=== PATIENT | female | born 1985 | race Caucasian/White ===

== ENCOUNTER 2016-11-30 21:51 | Outpatient (CLI) | payer MEDICAID | END 2016-11-30 21:52 | disposition home or self-care (01) | DX: M79.641 Pain in right hand (principal) ==

== ENCOUNTER 2017-06-10 08:27 | Emergency (ER) | payer MEDICAID ==
[2017-06-10] MEDS ORDERED: IPRATROPIUM/ALBUTEROL 3 ML NEB INH STA (08:43)
[2017-06-10] MEDS ORDERED: IPRATROPIUM/ALBUTEROL 3 ML NEB INH ONE (08:48)
--- NOTE | 2017-06-10 08:53 | ED Physician Documentation ---
PD HPI DYSPNEA - Stated complaint Stated Complaint: SOA - Chief complaint Chief Complaint: Resp - History obtained from History obtained from: Patient - History of Present Illness Timing - onset: How many weeks ago (1) Timing - onset during: Rest Timing - duration: Weeks (1) Timing - details: Gradual onset, Still present Inciting event(s): URI Improved by: Inhaler/neb Worsened by: Exertion, Coughing Associated symptoms: Cough, Wheezing. No: Fever Similar symptoms before: Diagnosis (asthma exacerbation) Recently seen: Not recently seen - Additional information Additional information: 31-year-old female with a history of chronic persistent asthma has developed increased wheezing over the past week and she is now very tight. She uses her inhaler 2-3 times per day regularly and she has been using it more frequently. She has a cough productive of phlegm she has some sinus congestion and she has had some ear pain. She has not had vomiting. She has not been able to gain control over her asthma and has some issue with inhaled corticosteroid. She does not have issue with prednisone. Review of Systems Constitutional: denies: Fever Eyes: denies: Decreased vision Ears: reports: Ear pain Nose: reports: Rhinorrhea / runny nose, Congestion, Sinus pressure / pain Throat: denies: Sore throat Cardiac: denies: Chest pain / pressure, Palpitations Respiratory: reports: Dyspnea, Cough, Wheezing GI: denies: Abdominal Pain, Nausea, Vomiting : denies: Dysuria PD PAST MEDICAL HISTORY - Past Medical History Cardiovascular: None Respiratory: Asthma Neuro: Headache/migraine Endocrine/Autoimmune: None GI: None : None HEENT: None Psych: None Musculoskeletal: None Derm: Eczema - Past Surgical History Past Surgical History: No HEENT: Myringotomy (tubes) - Present Medications Home Medications: Ambulatory Orders Medication Instructions Recorded Confirmed Ibuprofen [Motrin] 800 mg PO Q8H PRN 10/21/13 10/21/13 Albuterol Sulfate [Ventolin Hfa] 90 12/04/13 12/04/13 Azithromycin [Zithromax] 250 mg PO DAILY #6 tablet 06/10/17 predniSONE [Deltasone] 10 mg PO DAILY #26 tablet 06/10/17 - Allergies Allergies/Adverse Reactions: Allergies Allergy/AdvReac Type Severity Reaction Status Date / Time Latex, Natural Rubber Allergy Severe Hives Verified 08/22/13 23:45 Sulfa (Sulfonamide Allergy Severe Rash Verified 08/22/13 23:45 Antibiotics) - Social History Does the pt smoke?: Yes Smoking Status: Current every day smoker Does the pt drink ETOH?: Yes Does the pt have substance abuse?: No - Immunizations Immunizations are current?: Yes PD ED PE NORMAL - Vitals Vital signs reviewed: Yes (Normal) - General General: Well developed/nourished, Other (The patient is using pursed lipped breathing) - HEENT HEENT: Atraumatic, PERRL, EOMI, Ears normal, Moist mucous membranes, Pharynx benign - Neck Neck: Supple, no meningeal sign, No bony TTP - Cardiac Cardiac: RRR, No murmur - Respiratory Respiratory: Other (Tachypneic at rest with fine wheezes throughout and diminished breath sounds.) - Abdomen Abdomen: Soft, Non tender - Back Back: No CVA TTP, No spinal TTP - Derm Derm: Normal color, Warm and dry, No rash - Extremities Extremities: No deformity, No edema - Neuro Neuro: No motor deficit, No sensory deficit - Psych Psych: Normal mood, Normal affect Results - Vitals Vitals: Vital Signs - 24 hr 06/10/17 06/10/17 08:37 08:47 Temperature 97.9 C H Heart Rate 93 81 Respiratory 24 22 Rate Blood Pressure 103/66 O2 Saturation 99 Oxygen O2 Source Room air PD MEDICAL DECISION MAKING - ED course Complexity details: considered differential, d/w patient ED course: 31-year-old female with a history of chronic persistent asthma has an exacerbation of asthma with cough productive of green phlegm. Her ears appear clear today. Here in the emergency department she is given a DuoNeb treatment we will place her on a course of prednisone and Zithromax and she will follow- up with her primary. Departure - Departure Disposition: 01 Home, Self Care Clinical Impression: Asthma exacerbation Acute bronchitis Qualifiers: Bronchitis organism: unspecified organism Qualified Code(s): J20.9 - Acute bronchitis, unspecified Condition: Stable Instructions: ED Upper Resp Infec Abx Tx, ED Reactive Airway Disease Follow-Up: Mesfin Bennett MD [Primary Care Provider] - Prescriptions: predniSONE [Deltasone] 10 mg PO DAILY #26 tablet Azithromycin [Zithromax] 250 mg PO DAILY #6 tablet Forms: Activity restrictions
[2017-06-10 09:13] VITALS: BP 103/78
== END 2017-06-10 09:26 | disposition home or self-care (01) ==
LOC: ED 08:27
DX: J45.901 Unspecified asthma with (acute) exacerbation (principal); J20.9 Acute bronchitis, unspecified; F17.200 Nicotine dependence, unspecified, uncomplicated
CPT/HCPCS: 94640; 94664; 99283; J7620

== ENCOUNTER 2017-09-01 14:00 | Outpatient (CLI) | payer OTHER, MEDICAID ==
--- NOTE | 2017-09-08 17:10 | XRAY Report ---
EXAM: COMPLETE LUMBAR SPINE 09/01/2017. CLINICAL INDICATION: Lower back pain for months. FINDINGS: AP, lateral, oblique, cone down views of the lumbar spine demonstrate normal height and alignment of the vertebral bodies. There is a bilateral L5 pars defect, without evidence of anterolisthesis of L5 on S1. Bulky facet arthropathy is noted at L4-L5. There is no evidence of compression fracture. Bilateral tubal ligation clips are incidentally noted. IMPRESSION: Bilateral L5 pars defects, without evidence of anterolisthesis of L5 on S1. Bulky facet arthropathy at L4-L5. No evidence of compression fracture. TD: 09/01/2017 17:51 [facility]
== END 2017-09-01 14:01 | disposition home or self-care (01) ==
LOC: DI 14:00
PROVIDERS: ATTEND Nurse Practitioner Gerontology
DX: M43.06 Spondylolysis, lumbar region (principal); M47.896 Other spondylosis, lumbar region
CPT/HCPCS: 72110

== ENCOUNTER 2017-10-13 15:18 | Outpatient (CLI) | payer OTHER, MEDICAID ==
--- NOTE | 2017-10-13 17:54 | XRAY Report ---
DATE OF SERVICE: 10/13/2017 THREE VIEW SACRUM AND COCCYX: 10/13/2017 CLINICAL INDICATION: Coccygeal pain. FINDINGS: AP, lateral, oblique views of the sacrum and coccyx demonstrate no evidence of fracture. The sacral ala are preserved. The sacroiliac joints are unremarkable. Tubal ligation clips are incidentally noted in the pelvis. IMPRESSION: NORMAL SACRUM AND COCCYX. TD: 10/13/2017 18:53
== END 2017-10-13 15:19 | disposition home or self-care (01) ==
LOC: DI 15:18
PROVIDERS: ATTEND Family Medicine
DX: M53.3 Sacrococcygeal disorders, not elsewhere classified (principal)
CPT/HCPCS: 72220

== ENCOUNTER 2018-02-26 14:47 | Outpatient (CLI) | payer MEDICAID, OTHER ==
--- NOTE | 2018-02-26 16:58 | MRI Report ---
EXAM: MRI PELVIS WITHOUT CONTRAST EXAM DATE: 02/26/2018 03:51 PM. CLINICAL HISTORY: Sacral back pain, coccygeal pain. COMPARISON: Sacrococcygeal radiography from 10/13/2017. TECHNIQUE: Multiplanar, multisequence T1-weighted and fluid-sensitive sequences of the pelvis without contrast. Other: None. FINDINGS: Bones: There are small hemangiomas or focal fatty marrow deposits within the L5 vertebral body and S2 segment of the sacrum. No acute fracture. Lower Lumbar Spine: Unremarkable. Sacroiliac Joints: No effusion or sacroiliitis. Right Hip: No acetabular retroversion. Femoral head-neck offset is within normal limits. No effusion. Left Hip: No acetabular retroversion. Femoral head-neck offset is within normal limits. No effusion. Musculature: No edema or fatty atrophy. Pelvic Cavity: There is a 1.6 x 1.6 x 1.5 cm cyst at the left ovary. No free fluid or lymphadenopathy . Other: The visualized sciatic nerves are unremarkable. The subcutaneous tissues are unremarkable. IMPRESSION: 1. Small subcentimeter hemangiomas or focal fatty marrow deposits within the L5 vertebral body and S1 segment of the sacrum. 2. No acute fracture or bone lesion. 3. Incidental finding of a small left ovarian cyst. 4. Otherwise, unremarkable MRI of the sacrum and coccyx. [facility] MUSCULOSKELET[facility]IOLOGY SECTION Referring Provider Line: [phone] SITE ID: [id number]
== END 2018-02-26 14:48 | disposition home or self-care (01) ==
LOC: DI 14:47
PROVIDERS: ATTEND Family Medicine
DX: M54.89 Other dorsalgia (principal); M53.3 Sacrococcygeal disorders, not elsewhere classified
CPT/HCPCS: 72195

== ENCOUNTER 2018-11-28 08:47 | Emergency (ER) | payer BC, OTHER ==
--- NOTE | 2018-11-28 09:06 | ED Physician Documentation ---
PD HPI CHEST PAIN - Stated complaint Stated Complaint: CP/SOA - History obtained from History obtained from: Patient - History of Present Illness Timing - onset: How many hours ago (1) Timing - onset during: Rest Timing - duration: Hours (1) Timing - details: Abrupt onset Pain level max: 9 Pain level now: 9 Quality: Pressure, Tightness Location: Other (Entire chest) Radiation: Other (Nonradiating) Improved by: Other (Improved when she used her inhaler) Worsened by: Movement, Palpation Associated symptoms: Shortness of air. No: Diaphoresis, Nausea, Vomiting, Fee ling faint / dizzy, General Weakness, Palpitations, Cough Recently seen: Not recently seen Review of Systems Constitutional: denies: Fever, Chills Cardiac: denies: Palpitations Respiratory: reports: Wheezing (Had wheezing at the time of the symptoms, this is now better). denies: Cough GI: denies: Vomiting, Diarrhea Skin: denies: Rash Musculoskeletal: denies: Neck pain, Back pain PD PAST MEDICAL HISTORY - Past Medical History Cardiovascular: None Respiratory: Asthma Endocrine/Autoimmune: None GI: None : None HEENT: None Psych: None Musculoskeletal: None Derm: Eczema - Past Surgical History Past Surgical History: No HEENT: Myringotomy (tubes) - Present Medications Home Medications: Ambulatory Orders Medication Instructions Recorded Confirmed Albuterol Sulfate [Ventolin Hfa] 90 applic NEB PRN PRN 12/04/13 11/28/18 - Allergies Allergies/Adverse Reactions: Allergies Allergy/AdvReac Type Severity Reaction Status Date / Time Latex, Natural Rubber Allergy Severe Hives Verified 08/22/13 23:45 Sulfa (Sulfonamide Allergy Severe Rash Verified 08/22/13 23:45 Antibiotics) - Social History Does the pt smoke?: Yes Smoking Status: Current every day smoker Does the pt drink ETOH?: Yes Does the pt have substance abuse?: No - Immunizations Immunizations are current?: Yes PD ED PE NORMAL - Vitals Vital signs reviewed: Yes - General General: Alert and oriented X 3, No acute distress, Well developed/nourished - HEENT HEENT: PERRL, Ears normal, Moist mucous membranes - Neck Neck: Supple, no meningeal sign - Cardiac Cardiac: RRR - Respiratory Respiratory: No respiratory distress, Other (Mild wheezing bilaterally) - Abdomen Abdomen: Soft, Non tender, Non distended - Derm Derm: Warm and dry, No rash - Extremities Extremities: No edema, No calf tenderness / cord - Neuro Neuro: Alert and oriented X 3 - Psych Psych: Normal mood, Normal affect Results - Vitals Vitals: Vital Signs - 24 hr 11/28/18 11/28/18 11/28/18 09:13 09:15 09:45 Temperature 36.4 C L Heart Rate 56 L 56 L Respiratory 16 11 L Rate Blood Pressure 108/79 121/82 H 119/76 O2 Saturation 100 100 11/28/18 11/28/18 10:15 10:44 Temperature Heart Rate 57 L 61 Respiratory 22 22 Rate Blood Pressure 110/72 O2 Saturation 100 100 Oxygen O2 Source Room air - EKG (time done) 0856 Rate: Rate (enter#) (56) Rhythm: NSR [place]: Normal Intervals: Normal ND QRS: Normal Ischemia: Normal ST segments - Labs Labs: Laboratory Tests 11/28/18 11/28/18 11/28/18 09:13 09:13 09:13 WBC 6.7 RBC 4.64 Hgb 13.0 Hct 38.5 MCV 83.0 MCH 28.1 MCHC 33.9 RDW 13.0 Plt Count 183 MPV 8.9 Neut # (Auto) 3.3 Lymph # (Auto) 2.4 George # (Auto) 0.6 Eos # (Auto) 0.2 Baso # (Auto) 0.0 Absolute Nucleated RBC 0.00 Nucleated RBC % 0.0 Sodium 137 Potassium 3.6 Chloride 104 Carbon Dioxide 23 Anion Gap 10.0 BUN 13 Creatinine 0.8 Estimated GFR (MDRD) 82 L Glucose 96 Calcium 9.2 Total Bilirubin 0.9 AST 17 ALT < 10 L Alkaline Phosphatase 41 L Troponin I < 0.04 Total Protein 7.0 Albumin 4.4 Globulin 2.6 Albumin/Globulin Ratio 1.7 Lipase 25 - Rads (name of study) cxr Radiology: Prelim report reviewed, EMP read contemporaneously, See rad report (no acute disease) PD MEDICAL DECISION MAKING - ED course Complexity details: reviewed results, re-evaluated patient, considered d ifferential, d/w patient ED course: 33-year-old female with what sounds like bronchospasm today. Symptoms improved with an inhaler and wheezing resolved. She was also given a nebulizer treatment in the emergency department with good relief. No evidence of acute coronary syndrome, pulmonary embolus, aortic dissection. Patient counseled regarding signs and symptoms for which I believe and urgent re-evaluation would be necessary. Patient with good understanding of and agreement to plan and is comfortable going home at this time This document was made in part using voice recognition software. While efforts are made to proofread this document, sound alike and grammatical errors may occur. Departure - Departure Disposition: Home, Self Care Clinical Impression: Chest pain Qualifiers: Chest pain type: unspecified Qualified Code(s): R07.9 - Chest pain, unspecified Condition: Good Instructions: ED Chest Pain Atypical Unkn Cause Follow-Up: Your,doctor within 1 week [Other] Comments: Return if you worsen. Use your inhaler as needed. It appears that you had an episode of bronchospasm today. Forms: Activity restrictions Discharge Date/Time: 11/28/18 10:50
[2018-11-28 09:16] LABS: BASOPHILS % (AUTO) 0.6 %; EOSINOPHILS # (AUTO) 0.2 10^3/uL (0.0-0.7); LYMPHOCYTES # (AUTO) 2.4 10^3/uL (1.5-3.5); LYMPHOCYTES % (AUTO) 36.7 %; MEAN CORPUSCULAR HEMOGLOBIN 28.1 pg (27.0-31.0); MEAN CORPUSCULAR HGB CONC 33.9 g/dL (32.0-36.0); MEAN PLATELET VOLUME 8.9 fL (7.9-10.8); MONOCYTES # (AUTO) 0.6 10^3/uL (0.0-1.0); MONOCYTES % (AUTO) 9.5 %; NEUTROPHILS # (AUTO) 3.3 10^3/uL (1.5-6.6); NEUTROPHILS % (AUTO) 50.2 %; PLT - PLATELET COUNT 183 10^3/uL (130-450); RED BLOOD COUNT 4.64 10^6/uL (4.20-5.40); WHITE BLOOD COUNT 6.7 x10^3/uL (4.8-10.8)
[2018-11-28 09:30] LABS: ALBUMIN 4.4 g/dL (3.2-5.5); ALBUMIN/GLOBULIN RATIO 1.7 (1.0-2.2); ALKALINE PHOSPHATASE 41 IU/L (42-121); ALT ALANINE AMINOTRANSFERASE < 10 IU/L (10-60); AST ASPARTATE AMINOTRANSFERASE 17 IU/L (10-42); BILIRUBIN,TOTAL 0.9 mg/dL (0.2-1.0); BUN - BLOOD UREA NITROGEN 13 mg/dL (6-20); CALCIUM 9.2 mg/dL (8.5-10.3); CARBON DIOXIDE - CO2 23 mmol/L (21-32); CHLORIDE 104 mmol/L (101-111); CREATININE 0.8 mg/dL (0.4-1.0); GFR - MDRD 82 (>89); GLUCOSE 96 mg/dL (70-100); LIPASE 25 U/L (22-51); SODIUM 137 mmol/L (135-145)
--- NOTE | 2018-11-28 09:31 | XRAY Report ---
Reason: Chest Pain Procedure Date: 11/28/2018 Accession Number: [id number] / [id number] Procedure: XR - Chest 1 View X-Ray CPT Code: 13026 FULL RESULT: EXAM: CHEST RADIOGRAPHY EXAM DATE: 11/28/2018 09:17 AM. CLINICAL HISTORY: Chest pain. COMPARISON: CHEST 2 VIEW PA/LAT 10/20/2013 10:06 PM. TECHNIQUE: 1 view. FINDINGS: Lungs/Pleura: No focal opacities evident. No pleural effusion. No pneumothorax. Mediastinum: Within exam limitations, the cardiomediastinal contour is normal. Other: None. IMPRESSION: Normal single view chest. [facility]
[2018-11-28] MEDS ORDERED: ALBUTEROL NEB 2.5 MG/3 ML INH STA (09:52)
[2018-11-28 10:44] VITALS: BP 110/72
== END 2018-11-28 10:50 | disposition home or self-care (01) ==
LOC: ED 08:47
DX: R07.9 Chest pain, unspecified (principal); R94.31 Abnormal electrocardiogram [ECG] [EKG]; F17.200 Nicotine dependence, unspecified, uncomplicated; Z96.22 Myringotomy tube(s) status
CPT/HCPCS: 36415; 71045; 80053; 83690; 84484; 85025; 93005; 94640; 99283; 99284

== ENCOUNTER 2019-05-14 18:18 | Emergency (ER) | payer OTHER, BC ==
[2019-05-14] MEDS ORDERED: ONDANSETRON ODT 4 MG TABLET TL STA (18:54)
--- NOTE | 2019-05-14 19:52 | CT Report ---
Reason: head injury, ALOC Procedure Date: 05/14/2019 Accession Number: [id number] / [id number] Procedure: CT - HEAD WO CPT Code: FULL RESULT: EXAM: CT HEAD EXAM DATE: 05/14/2019 07:25 PM. CLINICAL HISTORY: Head injury, ALOC. COMPARISON: None. TECHNIQUE: Multiaxial CT images were obtained from the foramen magnum to the vertex. Reformats: Sagittal and coronal. IV contrast: None. In accordance with CT protocol optimization, one or more of the following dose reduction techniques were utilized for this exam: automated exposure control, adjustment of mA and/or KV based on patient size, or use of iterative reconstructive technique. FINDINGS: Parenchyma: No intraparenchymal hemorrhage. No evidence of mass, midline shift, or CT findings of infarction. Boudreaux-white differentiation is distinct. Extraaxial Spaces: Normal for age. No subdural or epidural collections. Ventricles: Normal in size and position. Sinuses and Orbits: Imaged paranasal sinuses, orbits, and mastoids show no significant abnormality. Bones: Unremarkable. Other: None. IMPRESSION: Normal head CT. [facility]
--- NOTE | 2019-05-14 20:13 | ED Physician Documentation ---
PD HPI HEAD INJURY - Stated complaint Stated Complaint: HEAD PX - Chief complaint Chief Complaint: Neuro - History obtained from History obtained from: Patient - History of Present Illness Mechanism of head injury: Other (stood up and hit head on pipe at work today.) Where head injury occurred: Work Timing - onset: How many hours ago (1) Pain level max: 6 Pain level now: 5 Location of injury: Top Quality of pain: Pain, Throbbing, Aching Associated symptoms: AMS (states feels dazed). No: LOC Symptoms improve with: Rest Symptoms worsen with: Palpation Contributing factors: No: Anticoagulated, Intoxicated Recently seen: Not recently seen Review of Systems Constitutional: denies: Fever, Chills Throat: denies: Sore throat Cardiac: denies: Chest pain / pressure Respiratory: denies: Cough, Hemoptysis Skin: denies: Rash Musculoskeletal: denies: Neck pain, Back pain Neurologic: denies: Focal weakness, Numbness PD PAST MEDICAL HISTORY - Past Medical History Cardiovascular: None Respiratory: Asthma Endocrine/Autoimmune: None GI: None : None HEENT: None Psych: None Musculoskeletal: None Derm: Eczema - Past Surgical History Past Surgical History: No HEENT: Myringotomy (tubes) - Present Medications Home Medications: Ambulatory Orders Medication Instructions Recorded Confirmed Albuterol Sulfate [Ventolin Hfa] 90 applic NEB PRN PRN 12/04/13 11/28/18 Ondansetron Odt [Zofran] 4 mg TL Q6H PRN #10 tablet 05/14/19 - Allergies Allergies/Adverse Reactions: Allergies Allergy/AdvReac Type Severity Reaction Status Date / Time Latex, Natural Rubber Allergy Severe Hives Verified 05/14/19 18:28 Sulfa (Sulfonamide Allergy Severe Rash Verified 05/14/19 18:28 Antibiotics) - Social History Does the pt smoke?: Yes Smoking Status: Current every day smoker Does the pt drink ETOH?: Yes Does the pt have substance abuse?: No - Immunizations Immunizations are current?: Yes PD ED PE NORMAL - Vitals Vital signs reviewed: Yes - General General: Alert and oriented X 3, No acute distress - HEENT HEENT: PERRL, EOMI, Moist mucous membranes, Pharynx benign, Other (Tender to palpation on the crown of the head, parietal aspect. 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, No motor deficit, No sensory deficit, Normal speech Eye Opening: Spontaneous Motor: Obeys Commands Verbal: Oriented GCS Score: 15 - Psych Psych: Normal mood, Normal affect Results - Vitals Vitals: Vital Signs - 24 hr 05/14/19 05/14/19 18:26 20:17 Temperature 36.0 C L 36.6 C Heart Rate 72 61 Respiratory 19 16 Rate Blood Pressure 144/86 H 104/70 O2 Saturation 100 99 Oxygen O2 Source Room air PD MEDICAL DECISION MAKING - ED course Complexity details: reviewed results, re-evaluated patient, considered differential, d/w patient ED course: 33-year-old female presents to the emergency department after striking her head on a metal pipe tonight. Negative head CT. No neurological deficits. Patient counseled regarding signs and symptoms for which I believe and urgent re- evaluation would be necessary. Patient with good understanding of and agreement to plan and is comfortable going home at this time This document was made in part using voice recognition software. While efforts are made to proofread this document, sound alike and grammatical errors may occur. Departure - Departure Disposition: 01 Home, Self Care Clinical Impression: Head injury Qualifiers: Encounter type: initial encounter Qualified Code(s): S09.90XA - Unspecified injury of head, initial encounter Condition: Good Instructions: ED Head Injury Closed Follow-Up: your,doctor in 1 week [Other] Prescriptions: Ondansetron Odt [Zofran] 4 mg TL Q6H PRN #10 tablet PRN Reason: Nausea / Vomiting Comments: Return if you worsen. Your head CT is normal. You may have headaches for a few days. Discharge Date/Time: 05/14/19 20:18
[2019-05-14 20:17] VITALS: BP 104/70
== END 2019-05-14 20:18 | disposition home or self-care (01) ==
LOC: ED 18:18
DX: S09.90XA Unspecified injury of head, initial encounter (principal); W51.XXXA Accidental striking against or bumped into by another person, initial encounter; Y93.89 Activity, other specified; Y99.0 Civilian activity done for income or pay; F17.200 Nicotine dependence, unspecified, uncomplicated
CPT/HCPCS: 1040M; 70450; 99283; 99284; Q0162

== ENCOUNTER 2019-06-23 14:29 | Emergency (ER) | payer BC ==
[2019-06-23] MEDS ORDERED: IPRATROPIUM/ALBUTEROL 3 ML NEB INH STA (14:34)
--- NOTE | 2019-06-23 15:11 | ED Physician Documentation ---
PD HPI DYSPNEA - Stated complaint Stated Complaint: SOA/COUGH - Chief complaint Chief Complaint: Resp - History obtained from History obtained from: Patient - History of Present Illness Timing - duration: Days Timing - details: Gradual onset Pain level now: 0 Worsened by: Exertion, Coughing Associated symptoms: Cough, Wheezing. 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 Today she was using her Ventolin inhaler about every 30 minutes and it was not clearing the shortness of breath so she went to get her nebulizer and the tube was broken. She was feeling lightheaded and coughing a lot so she thought she should come in to be evaluated. She has a history of asthma most recent use of prednisone was about a year ago. She is been using Advil Cold and Sinus and Delsym for the coughing. She says that she brings up very minimal phlegm that is clear she is also had some frontal sinus pressure but only coronal blowing clear mucus out occasionally slightly green. She denies chest pain other than when she coughed very hard she had some pain in the right anterior chest. No fever. Review of Systems Constitutional: denies: Fever Ears: reports: Ear pain Nose: reports: Congestion, Sinus pressure / pain Throat: denies: Sore throat Cardiac: denies: Chest pain / pressure, Palpitations Respiratory: reports: Dyspnea, Cough, Wheezing PD PAST MEDICAL HISTORY - Past Medical History Cardiovascular: None Respiratory: Asthma Endocrine/Autoimmune: None GI: None : None HEENT: None Psych: None Musculoskeletal: None Derm: Eczema - Past Surgical History Past Surgical History: No HEENT: Myringotomy (tubes) - Present Medications Home Medications: Ambulatory Orders Medication Instructions Recorded Confirmed Albuterol Sulfate [Ventolin Hfa] 90 applic NEB PRN PRN 12/04/13 11/28/18 Albuterol 2.5 mg INH Q4H PRN #30 neb 06/23/19 Benzonatate [Tessalon] 100 mg PO TID #30 capsule 06/23/19 predniSONE [Deltasone] 40 mg PO DAILY 5 Days #10 tablet 06/23/19 - Allergies Allergies/Adverse Reactions: Allergies Allergy/AdvReac Type Severity Reaction Status Date / Time Latex, Natural Rubber Allergy Severe Hives Verified 06/23/19 14:41 Sulfa (Sulfonamide Allergy Severe Rash Verified 06/23/19 14:41 Antibiotics) - Social History Does the pt smoke?: Yes Smoking Status: Former smoker Does the pt drink ETOH?: Yes Does the pt have substance abuse?: No - Immunizations Immunizations are current?: Yes PD ED PE NORMAL - Vitals Vital signs reviewed: Yes - General General: Alert and oriented X 3, No acute distress, Well developed/nourished - HEENT HEENT: Atraumatic, PERRL, EOMI, Moist mucous membranes, Pharynx benign, Other (TMs are mildly retracted bilaterally) - Neck Neck: Supple, no meningeal sign - Cardiac Cardiac: RRR - Respiratory Respiratory: No respiratory distress, Other (There was an isolated end inspiratory wheeze at the left base that cleared with deep breathing. The patient had already received albuterol nebulizer prior to my evaluation.) - Derm Derm: Normal color, No rash - Neuro Neuro: Alert and oriented X 3, Normal speech, Other (No gross neurological deficits.) Results - Vitals Vitals: Vital Signs - 24 hr 06/23/19 06/23/19 14:39 14:57 Temperature 36.7 C Heart Rate 83 70 Respiratory 24 18 Rate Blood Pressure 119/86 H O2 Saturation 100 Oxygen O2 Source Room air PD MEDICAL DECISION MAKING - ED course ED course: Patient is feeling better after 1 albuterol nebulizer and has no wheezing. She feels she would benefit from a 5-day course of prednisone and I have refilled her albuterol nebulizer solution and provide a prescription for Tessalon Perles. Do not see an indication for chest x-ray or antibiotics. She will follow-up if not improving. Departure - Departure Disposition: 01 Home, Self Care Clinical Impression: Asthma exacerbation Qualifiers: Asthma severity: mild Asthma persistence: unspecified Qualified Code(s): J45.901 - Unspecified asthma with (acute) exacerbation Upper respiratory tract infection Qualifiers: URI type: unspecified viral URI Qualified Code(s): J06.9 - Acute upper respiratory infection, unspecified Condition: Good Instructions: Asthma Dc, ED Viral Syndrome Follow-Up: Alejandro Myrick PA-C [Primary Care Provider] - Prescriptions: Albuterol 2.5 mg INH Q4H PRN #30 neb PRN Reason: Wheezing Benzonatate [Tessalon] 100 mg PO TID #30 capsule predniSONE [Deltasone] 40 mg PO DAILY 5 Days #10 tablet Comments: Use the nebulizer up to every 4 hours if needed. He can start the prednisone today 2 tablets daily for 5 days. Tessalon can be used for cough but do not bite or chew it. Be sure to swallow it whole. He can still use Delsym if needed for coughing. Follow-up with your primary provider if your symptoms are worsening, you develop a fever or other problems arise.
[2019-06-23 15:34] VITALS: BP 109/67
[2019-06-23] MEDS ORDERED: predniSONE 20 MG TABLET PO STA (15:38)
== END 2019-06-23 15:44 | disposition home or self-care (01) ==
LOC: ED 14:29
DX: J45.901 Unspecified asthma with (acute) exacerbation (principal); J06.9 Acute upper respiratory infection, unspecified; Z87.891 Personal history of nicotine dependence
CPT/HCPCS: 94664; 99283; 99284; J7512

== ENCOUNTER 2020-03-16 19:42 | Emergency (ER) | payer BC ==
--- NOTE | 2020-03-16 21:06 | ED Physician Documentation ---
History of Present Illness - Stated complaint Stated Complaint: MED REACTION - Chief complaint Chief Complaint: General - History obtained from History obtained from: Patient - History of Present Illness Timing: How many days ago (4-5) Pain level now: 2 Improved by: nothing Worsened by: no exacerbating factors - Additonal information Additional information: c/o 4-5 days of heavy menses with clots, associated with generalized weakness, lightheadedness. Was evaluated at ED earlier today for these symptoms, w/u included CBC (h/h 9.7/28.4, WBC 4.9), and normal ER abdominal panel. She was prescribed zofran, iron, and medroxyprogesterone. she took the first dose of medroxyprogesterone at 3:30 PM today and again at 6 PM. Subsequent to the second dose, she experienced chest discomfort (bilateral, pleuritic, "lungs hurt"), generalized paresthesias but most pronounced in RUE, and feeling flushed with "cold sweats" Review of Systems Constitutional: reports: Chills, Sweats. denies: Fever Cardiac: reports: Chest pain / pressure Respiratory: denies: Dyspnea GI: denies: Abdominal Pain, Nausea, Vomiting : reports: Vaginal bleeding. denies: Now EGA (tubal ligation) Skin: denies: Rash Neurologic: reports: Numbness (RUE paresthesias, resolved) PD PAST MEDICAL HISTORY - Past Medical History Past Medical History: Yes Cardiovascular: None Respiratory: Asthma Endocrine/Autoimmune: None GI: None : None HEENT: None Psych: None Musculoskeletal: None Derm: Eczema - Past Surgical History Past Surgical History: Yes HEENT: Myringotomy (tubes) - Present Medications Home Medications: Ambulatory Orders Medication Instructions Recorded Confirmed Albuterol Sulfate [Ventolin Hfa] 90 applic NEB PRN PRN 12/04/11/28/18 Albuterol 2.5 mg INH Q4H PRN #30 neb 06/23/19 Benzonatate [Tessalon] 100 mg PO TID #30 capsule 06/23/19 predniSONE [Deltasone] 40 mg PO DAILY 5 Days #10 tablet 06/23/19 - Allergies Allergies/Adverse Reactions: Allergies Allergy/AdvReac Type Severity Reaction Status Date / Time Latex, Natural Rubber Allergy Severe Hives Verified 03/16/20 20:26 Sulfa (Sulfonamide Allergy Severe Rash Verified 03/16/20 20:26 Antibiotics) - Social History Does the pt smoke?: Yes Smoking Status: Current every day smoker Does the pt drink ETOH?: Yes Does the pt have substance abuse?: No - Immunizations Immunizations are current?: Yes - POLST Patient has POLST: No PD ED PE NORMAL - Vitals Vital signs reviewed: Yes - General General: Alert and oriented X 3, No acute distress, Well developed/nourished - HEENT HEENT: Moist mucous membranes - Cardiac Cardiac: RRR, No murmur - Respiratory Respiratory: No respiratory distress, Clear bilaterally - Back Back: No CVA TTP - Derm Derm: Normal color, Warm and dry Results - Vitals Vitals: Vital Signs - 24 hr 03/16/20 03/16/20 03/16/20 19:44 20:15 22:14 Temperature 36.1 C L Heart Rate 77 70 63 Respiratory 16 18 16 Rate Blood Pressure 118/70 104/66 O2 Saturation 100 100 100 03/16/20 22:55 Temperature Heart Rate 67 Respiratory 16 Rate Blood Pressure 108/75 O2 Saturation 100 Oxygen O2 Source Room air - Rads (name of study) cxr Radiology: Prelim report reviewed, See rad report PD MEDICAL DECISION MAKING - ED course Complexity details: reviewed results, re-evaluated patient, considered differential, d/w patient ED course: D/W Dr. Spence; he recommends continue medroxyprogesterone as per the prescribed taper Departure - Departure Disposition: 01 Home, Self Care Clinical Impression: Medication reaction Condition: Good Instructions: ED Drug React Adverse Other Follow-Up: ASHIA LEE MD [Primary Care Provider] - Discharge Date/Time: 03/16/20 22:55
--- NOTE | 2020-03-16 21:58 | XRAY Report ---
PROCEDURE: Chest 2 View X-Ray INDICATIONS: chest discomfort, cough TECHNIQUE: 2 view(s) of the chest. COMPARISON: Chest x-ray 12/02/2018. FINDINGS: Surgical changes and devices: None. Lungs and pleura: No pleural effusions or pneumothorax. Lungs are clear. Mediastinum: Mediastinal contours are normal. Heart size is normal. Bones and chest wall: No suspicious bony abnormalities. Soft tissues appear unremarkable. IMPRESSION: No acute cardiopulmonary disease. Reviewed by: Lance Dunbar MD on 03/16/2020 9:57 PM PDT Approved by: Lance Dunbar MD on 03/16/2020 9:57 PM PDT Station ID: [id number]
[2020-03-16 22:59] VITALS: BP 108/75
== END 2020-03-16 22:55 | disposition home or self-care (01) ==
LOC: ED 19:42
DX: R07.81 Pleurodynia (principal); R20.2 Paresthesia of skin; R61 Generalized hyperhidrosis; T38.5X5A Adverse effect of other estrogens and progestogens, initial encounter; F17.200 Nicotine dependence, unspecified, uncomplicated
CPT/HCPCS: 71046; 99283; 99284

== ENCOUNTER 2020-12-14 23:56 | Emergency (ER) | payer BC ==
[2020-12-15 00:04] VITALS: BP 134/99
[2020-12-15] MEDS ORDERED: HYDROcod/ACET 5/325 Prepack 4 PO STA (00:24)
[2020-12-15] MEDS ORDERED: ONDANSETRON ODT 4 MG TABLET TL STA (00:24)
[2020-12-15] MEDS ORDERED: ONDANSETRON ODT 4 MG Prepack 2 TL PRN (00:24)
[2020-12-15] MEDS ORDERED: AMOXICILLIN 250 MG CAPSULE PO STA (00:24)
--- NOTE | 2020-12-15 00:32 | ED Physician Documentation ---
PD HPI HEENT - Stated complaint Stated Complaint: MOUTH PX - Chief complaint Chief Complaint: Heent - History obtained from History obtained from: Patient - Additional information Additional information: Patient comes emergency department chief complaint of pain in her mouth. She states that it started on the right side where one of her maxillary teeth is broken. She states that initially, the pain seemed to emanate from there, but has migrated especially into her right TMJ and somewhat onto the left side as well. She states that she thinks she may be clenching her teeth somewhat in addition to the dental problems, and is not sure if this is more of the problem. She states she has a dental appointment coming up in a few days, but that the pain has just been getting worse and worse over the last few days. Patient states that she feels a sense of swelling and that it is hard for her to open her jaw all the way because of the pain and swelling sensation on the right. No fevers or chills. No external swelling that the patient can discern. No other complaints at this time. Review of Systems Ten Systems: 10 systems reviewed and negative Constitutional: reports: Reviewed and negative Eyes: reports: Reviewed and negative Ears: reports: Reviewed and negative Nose: reports: Reviewed and negative Throat: reports: Dental pain / toothache Cardiac: reports: Reviewed and negative Respiratory: reports: Reviewed and negative GI: reports: Reviewed and negative : reports: Reviewed and negative Skin: reports: Reviewed and negative Musculoskeletal: reports: Reviewed and negative Neurologic: reports: Reviewed and negative Psychiatric: reports: Reviewed and negative Endocrine: reports: Reviewed and negative Immunocompromised: reports: Reviewed and negative PD PAST MEDICAL HISTORY - Past Medical History Cardiovascular: None Respiratory: Asthma Endocrine/Autoimmune: None GI: None : None HEENT: None Psych: None Musculoskeletal: None Derm: Eczema - Past Surgical History Past Surgical History: Yes HEENT: Myringotomy (tubes) - Present Medications Home Medications: Ambulatory Orders Medication Instructions Recorded Confirmed Albuterol Sulfate [Ventolin Hfa] 90 applic NEB PRN PRN 12/04/13 12/15/20 Albuterol 2.5 mg INH Q4H PRN #30 neb 06/23/19 12/15/20 Amoxicillin 500 mg PO TID 7 Days #21 cap 12/15/20 Fluticasone 44 Mcg [Flovent] 1 puffs INH PRN PRN 12/15/20 12/15/20 HYDROcod/ACETAM 5/325 [[place] 5/325] 1 - 2 tablet PO Q6H PRN #14 tablet 12/15/20 Ondansetron Odt [Zofran] 4 mg TL Q6H PRN #10 tablet 12/15/20 - Allergies Allergies/Adverse Reactions: Allergies Allergy/AdvReac Type Severity Reaction Status Date / Time Latex, Natural Rubber Allergy Severe Hives Verified 12/15/20 00:04 Sulfa (Sulfonamide Allergy Severe Rash Verified 12/15/20 00:04 Antibiotics) - Social History Does the pt smoke?: Yes Smoking Status: Current every day smoker Does the pt drink ETOH?: Yes Does the pt have substance abuse?: No - Immunizations Immunizations are current?: Yes - POLST Patient has POLST: No PD ED PE NORMAL - Vitals Vital signs reviewed: Yes - General General: Alert and oriented X 3, No acute distress - HEENT HEENT: Atraumatic, PERRL, EOMI, Moist mucous membranes, Other (Seem toMixed dentition with some and some partial decay. 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 She has been started on amoxicillin, Zofran, and Vicodin. She has an upcoming appointment with her dentist which she is encouraged to keep. We have discussed nonnarcotic pain control options for work hours. We discussed the usual indications for return. Departure - Departure Disposition: 01 Home, Self Care Clinical Impression: Pain due to dental caries Condition: Stable Instructions: ED Tooth Pain Prescriptions: Amoxicillin 500 mg PO TID 7 Days #21 cap HYDROcod/ACETAM 5/325 [[place] 5/325] 1 - 2 tablet PO Q6H PRN #14 tablet PRN Reason: Pain Ondansetron Odt [Zofran] 4 mg TL Q6H PRN #10 tablet PRN Reason: Nausea / Vomiting Discharge Date/Time: 12/15/20 00:40
--- OUTSIDE RECORDS SUMMARY | 2020-12-22 21:56 | EXTERNAL MEDICAL SUMMARY RPT | Continuity of Care Document ---
:1985 Demographics Phone Unavailable Preferred Language Serbian Marital Status Unknown Episcopal Affiliation Unknown Race Unknown Ethnic Group Unknown Author Organization [facility] Address [address] [place] [address] Phone Problems date description facility [id number] Anemia, unspecified [facility] Social History date description facility [id number]
== END 2020-12-15 00:40 | disposition home or self-care (01) ==
LOC: ED 23:56
DX: K02.9 Dental caries, unspecified (principal); F17.200 Nicotine dependence, unspecified, uncomplicated
CPT/HCPCS: 99282; 99284; A9270; Q0162

== ENCOUNTER 2021-05-17 20:00 | Emergency (ER) | payer OTHER, BC ==
--- NOTE | 2021-05-17 20:12 | ED Physician Documentation ---
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 She was at work. She was wrapping a vacuum power cord and she felt a pop near the right first CMC and now has moderate pain in that area. No other injuries. Review of Systems Constitutional: reports: Reviewed and negative Eyes: reports: Reviewed and negative Ears: reports: Reviewed and negative Nose: reports: Reviewed and negative Throat: reports: Reviewed and negative PD PAST MEDICAL HISTORY - Past Medical History Past Medical History: Yes Cardiovascular: None Respiratory: Asthma Endocrine/Autoimmune: None GI: None : None HEENT: None Psych: None Musculoskeletal: None Derm: Eczema - Past Surgical History Past Surgical History: Yes HEENT: Myringotomy (tubes) - Present Medications Home Medications: Ambulatory Orders Medication Instructions Recorded Confirmed Albuterol Sulfate [Ventolin Hfa] 90 applic NEB PRN PRN 12/04/13 05/17/21 Albuterol 2.5 mg INH Q4H PRN #30 neb 06/23/19 12/15/20 Fluticasone 44 Mcg [Flovent] 1 puffs INH PRN PRN 12/15/20 05/17/21 - Allergies Allergies/Adverse Reactions: Allergies Allergy/AdvReac Type Severity Reaction Status Date / Time Latex, Natural Rubber Allergy Severe Hives Verified 05/17/21 20:05 Sulfa (Sulfonamide Allergy Severe Rash Verified 05/17/21 20:05 Antibiotics) - Social History Does the pt smoke?: Yes Smoking Status: Current every day smoker Does the pt drink ETOH?: Yes Does the pt have substance abuse?: No - Immunizations Immunizations are current?: Yes - POLST Patient has POLST: No PD ED PE NORMAL - Vitals Vital signs reviewed: Yes - General General: Alert and oriented X 3, No acute distress - Extremities Extremities: Other (Tender near the right first CMC and pain with dequervain testing no other tenderness about the wrist or hand.) - Neuro Neuro: Alert and oriented X 3, Normal speech Results - Vitals Vitals: Vital Signs - 24 hr 08/30/21 08/30/21 20:05 20:09 Temperature 36.6 C 36.6 C Heart Rate 72 72 Respiratory 19 18 Rate Blood Pressure 134/97 H 134/97 H O2 Saturation 100 100 Oxygen O2 Source Room air PD MEDICAL DECISION MAKING - ED course ED course: X-ray of the right wrist, 4 views interpreted contemporaneously by me is normal. 35-year-old woman with right wrist tendinitis, work-related injury. L&I and APF form completed. Departure - Departure Disposition: 01 Home, Self Care Clinical Impression: Right wrist tendinitis Condition: Good Record reviewed to determine appropriate education?: Yes Instructions: De Quervain Tenosynovitis Follow-Up: Jhonny Oliveira MD [Provider Admit Priv/Credential] - Comments: Tylenol and/or ibuprofen as needed for pain. Return for new or worsening symptoms. Wear the splint for comfort and support until improved. Follow-up with orthopedics, calling tomorrow for an appointment. The numbers on this form. Forms: Activity restrictions
--- NOTE | 2021-05-17 20:31 | XRAY Report ---
PROCEDURE: Wrist 4 View RT INDICATIONS: Wrist injury TECHNIQUE: 4 views of the wrist were acquired. COMPARISON: None FINDINGS: Bones: No fractures or dislocations. No suspicious bony lesions. Scaphoid view: Normal scaphoid and scapholunate interval. Soft tissues: No suspicious soft tissue calcifications. IMPRESSION: No acute finding. Reviewed by: Jude Mathias MD on 05/17/2021 8:30 PM PDT Approved by: Jude Mathias MD on 05/17/2021 8:30 PM PDT Station ID: [id number]
[2021-05-17 20:41] VITALS: BP 133/95
== END 2021-05-17 20:39 | disposition home or self-care (01) ==
LOC: ED 20:00
DX: M77.8 Other enthesopathies, not elsewhere classified (principal); X58.XXXA Exposure to other specified factors, initial encounter; Y93.E3 Activity, vacuuming; Y92.239 Unspecified place in hospital as the place of occurrence of the external cause; Y99.0 Civilian activity done for income or pay; F17.200 Nicotine dependence, unspecified, uncomplicated
CPT/HCPCS: 99282; 99283

== ENCOUNTER 2021-07-07 17:21 | Emergency (ER) | payer BC ==
[2021-07-07] MEDS ORDERED: ONDANSETRON 4 MG/2 ML VIAL IVP STA (17:24)
[2021-07-07] MEDS ORDERED: MECLIZINE 12.5 MG TABLET PO STA (17:24)
--- NOTE | 2021-07-07 17:25 | ED Physician Documentation ---
History of Present Illness - Stated complaint Stated Complaint: DIZZY - History obtained from History obtained from: Patient - Additonal information Additional information: 35-year-old female with past medical history of migraines presenting with symptoms of vertigo. 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 I encouraged her to check in if sx did not improve and she did so. She does periodically get dizziness with her migraines but felt that this was worse than normal. She took a Excedrin migraine about an hour ago with some relief in her headache but dizziness persists. She denies any fever, chills, neck pain or stiffness, cough or URI symptoms, chest pain or dyspnea, abdominal pain, nausea, diarrhea, extremity weakness. She does note some ear fullness particular on the right side, has a history of recurrent AOM. Review of Systems Ten Systems: 10 systems reviewed and negative Neurologic: reports: Headache, Other (Dizziness) PD PAST MEDICAL HISTORY - Past Medical History Past Medical History: Yes Cardiovascular: None Respiratory: Asthma Endocrine/Autoimmune: None GI: None : None HEENT: None Psych: None Musculoskeletal: None Derm: Eczema - Past Surgical History Past Surgical History: Yes HEENT: Myringotomy (tubes) - Present Medications Home Medications: Ambulatory Orders Medication Instructions Recorded Confirmed Albuterol Sulfate [Ventolin Hfa] 90 applic NEB PRN PRN 12/04/13 05/17/21 Albuterol 2.5 mg INH Q4H PRN #30 neb 06/23/19 12/15/20 Fluticasone 44 Mcg [Flovent] 1 puffs INH PRN PRN 12/15/20 05/17/21 Meclizine [Antivert] 12.5 mg PO Q6H #20 tablet 07/07/21 Ondansetron Odt [Zofran] 4 mg TL Q6H PRN #10 tablet 07/07/21 - Allergies Allergies/Adverse Reactions: Allergies Allergy/AdvReac Type Severity Reaction Status Date / Time Latex, Natural Rubber Allergy Severe Hives Verified 07/07/21 17:30 Sulfa (Sulfonamide Allergy Severe Rash Verified 07/07/21 17:30 Antibiotics) - Social History Does the pt smoke?: Yes Smoking Status: Current every day smoker Does the pt drink ETOH?: Yes Does the pt have substance abuse?: No - Immunizations Immunizations are current?: Yes - POLST Patient has POLST: No PD ED PE NORMAL - Vitals Vital signs reviewed: Yes - General General: Alert and oriented X 3, No acute distress, Well developed/nourished - HEENT HEENT: Atraumatic, PERRL, EOMI, Ears normal (scar tissue right ear from prior tubes, left ear normal), Moist mucous membranes, Pharynx benign (Statement), Other - Neck Neck: Supple, no meningeal sign, No bony TTP, No adenopathy, No JVD, No bruit - Cardiac Cardiac: RRR, No murmur - Respiratory Respiratory: No respiratory distress, Clear bilaterally - Abdomen Abdomen: Normal bowel sounds, Soft - Extremities Extremities: No deformity, No tenderness to palpate, Normal ROM s pain - Neuro Neuro: Alert and oriented X 3, No motor deficit, No sensory deficit, Normal speech Eye Opening: Spontaneous Motor: Obeys Commands Verbal: Oriented GCS Score: 15 - Psych Psych: Normal mood, Normal affect Results - Vitals Vitals: Vital Signs - 24 hr 07/07/21 07/07/21 07/07/21 17:27 17:56 19:36 Temperature 36.5 C Heart Rate 62 61 51 L Respiratory 16 16 14 Rate Blood Pressure 146/90 H 109/87 H 107/65 O2 Saturation 100 97 97 Oxygen O2 Source Room air - Labs Labs: Laboratory Tests 07/07/21 18:20 Urine Color YELLOW Urine Clarity CLEAR Urine pH 6.5 Ur Specific [place] <=1.005 Urine Protein NEGATIVE Urine Glucose (UA) NEGATIVE Urine Ketones NEGATIVE Urine Occult Blood LARGE H Urine Nitrite NEGATIVE Urine Bilirubin NEGATIVE Urine Urobilinogen 0.2 (NORMAL) Ur Leukocyte Esterase NEGATIVE Urine RBC 0-5 Urine WBC 0-3 Ur Squamous Epith Cells NONE SEEN Urine Bacteria None Seen Ur Microscopic Review INDICATED Urine Culture Comments NOT INDICATED Urine HCG, Qual NEGATIVE PD MEDICAL DECISION MAKING - ED course Complexity details: reviewed results, re-evaluated patient, considered differential, d/w patient ED course: 35 yo Female with past medical history of migraines who presented with vertigo. Patient has had vertigo in the past. Her physical exam is reassuring, consistent with benign positional vertigo. She had improvement with IV fluids, Zofran and meclizine. Her neuro exam was normal. Her headache had resolved. I advise supportive measures at home, will discharge her with Zofran and meclizine and reviewed return precautions in detail. Patient excuse from work today and tomorrow for rest. Departure - Departure Disposition: Home, Self Care Clinical Impression: Vertigo Migraine Qualifiers: Migraine type: unspecified Status migrainosus presence: without status migrainosus Intractability: not intractable Qualified Code(s): G43.909 - Migraine, unspecified, not intractable, without status migrainosus Condition: Good Instructions: Meclizine, ED Headache Migraine, ED Vertigo Unspecified Prescriptions: Meclizine [Antivert] 12.5 mg PO Q6H #20 tablet Ondansetron Odt [Zofran] 4 mg TL Q6H PRN #10 tablet PRN Reason: Nausea / Vomiting Comments: You presented with dizziness and vertigo. Your exam is reassuring and there are no signs of infection on your work-up. We gave you fluids as well as a nausea medicine and medicine for dizziness and your symptoms did improve. I will discharge you home with nausea and dizziness medication. Please follow-up with your primary care provider within 1 week. I have excuse you from work tomorrow for rest as needed. Forms: Activity restrictions Discharge Date/Time: 07/07/21 19:37
[2021-07-07] MEDS ORDERED: SODIUM CHLORIDE 0.9% 1,000 ML IV STA (17:28)
[2021-07-07 18:50] LABS: BILIRUBIN,URINE NEGATIVE (NEGATIVE); CLARITY,URINE CLEAR (CLEAR); GLUCOSE, URINE (UA) NEGATIVE (NEGATIVE); KETONES,URINE (UA) NEGATIVE (NEGATIVE); LEUKOCYTE ESTERASE, URINE NEGATIVE (NEGATIVE); NITRITE,URINE NEGATIVE (NEGATIVE); OCCULT BLOOD,URINE LARGE (NEGATIVE); PH,URINE 6.5 PH (5.0-7.5); PROTEIN,URINE NEGATIVE (NEGATIVE); UROBILINOGEN,URINE 0.2 (NORMAL) E.U./dL (NORMAL)
[2021-07-07 19:08] LABS: HCG UR QUAL NEGATIVE
[2021-07-07 19:20] LABS: BACTERIA,URINE None Seen /HPF (None Seen); RBC,URINE 0-5 /HPF (0-5); SQUAMOUS EPITHELIAL CELL,UR NONE SEEN (<= Few); WBC,URINE 0-3 /HPF (0-5)
[2021-07-07] MEDS ORDERED: ONDANSETRON ODT 4 MG Prepack 2 TL PRN (19:23)
[2021-07-07 19:37] VITALS: BP 107/65
== END 2021-07-07 19:37 | disposition home or self-care (01) ==
LOC: ED 17:21
DX: R42 Dizziness and giddiness (principal); G43.909 Migraine, unspecified, not intractable, without status migrainosus; F17.200 Nicotine dependence, unspecified, uncomplicated
CPT/HCPCS: 36415; 81001; 81025; 96374; 99283; 99284; A9270; 81003; 87086

== ENCOUNTER 2021-07-15 08:00 | Outpatient (CLI) | payer BC ==
[2021-07-15 12:27] LABS: BASOPHILS # (AUTO) 0.1 10^3/uL (0.0-0.1); BASOPHILS % (AUTO) 0.9 %; EOSINOPHILS # (AUTO) 0.2 10^3/uL (0.0-0.7); EOSINOPHILS % (AUTO) 2.8 %; HCT - HEMATOCRIT 42.1 % (37.0-47.0); HGB - HEMOGLOBIN 14.1 g/dL (12.0-16.0); LYMPHOCYTES # (AUTO) 1.9 10^3/uL (1.5-3.5); LYMPHOCYTES % (AUTO) 33.1 %; MEAN CORPUSCULAR HEMOGLOBIN 29.7 pg (27.0-31.0); MEAN CORPUSCULAR HGB CONC 33.5 g/dL (32.0-36.0); MEAN CORPUSCULAR VOLUME 88.8 fL (81.0-99.0); MEAN PLATELET VOLUME 11.7 fL (7.9-10.8); MONOCYTES # (AUTO) 0.6 10^3/uL (0.0-1.0); MONOCYTES % (AUTO) 9.8 %; PLT - PLATELET COUNT 183 10^3/uL (130-450); RED BLOOD COUNT 4.74 10^6/uL (4.20-5.40); RED CELL DISTRIBUTION WIDTH 12.1 % (12.0-15.0); WHITE BLOOD COUNT 5.7 x10^3/uL (4.8-10.8)
[2021-07-15 13:17] LABS: THYROID STIMULATING HORMONE 1.42 uIU/mL (0.34-5.60)
[2021-07-15 13:22] LABS: FERRITIN 15.7 ng/mL (11.0-306.8)
[2021-07-15 13:37] LABS: CALCIUM 9.5 mg/dL (8.5-10.3); CREATININE 0.7 mg/dL (0.4-1.0); POTASSIUM 4.2 mmol/L (3.5-5.0)
== END 2021-07-15 23:59 | disposition home or self-care (01) ==
LOC: LAB.WCP 08:00
PROVIDERS: ATTEND Family Medicine
DX: I95.1 Orthostatic hypotension (principal); R42 Dizziness and giddiness
CPT/HCPCS: 36415; 80048; 82728; 83540; 84443; 84466; 85025

== ENCOUNTER 2021-07-19 15:31 | Emergency (ER) | payer BC ==
[2021-07-19] MEDS ORDERED: KETOROLAC 30 MG/ML VIAL IVP STA (16:37)
[2021-07-19] MEDS ORDERED: SODIUM CHLORIDE 0.9% 1,000 ML IV STA (16:37)
[2021-07-19] MEDS ORDERED: PROMETHAZINE INJ 25 MG in SODIUM CHLORIDE 0.9% 50 ML IV STA (16:37)
[2021-07-19] MEDS ORDERED: diphenhydrAMINE INJ 50 MG/ML VIAL IVP STA (16:37)
[2021-07-19 17:00] LABS: BASOPHILS # (AUTO) 0.1 10^3/uL (0.0-0.1); EOSINOPHILS # (AUTO) 0.2 10^3/uL (0.0-0.7); HCT - HEMATOCRIT 42.4 % (37.0-47.0); HGB - HEMOGLOBIN 14.1 g/dL (12.0-16.0); LYMPHOCYTES # (AUTO) 1.8 10^3/uL (1.5-3.5); LYMPHOCYTES % (AUTO) 22.2 %; MEAN CORPUSCULAR HEMOGLOBIN 29.7 pg (27.0-31.0); MEAN CORPUSCULAR HGB CONC 33.3 g/dL (32.0-36.0); MEAN CORPUSCULAR VOLUME 89.5 fL (81.0-99.0); MEAN PLATELET VOLUME 11.3 fL (7.9-10.8); MONOCYTES # (AUTO) 0.7 10^3/uL (0.0-1.0); MONOCYTES % (AUTO) 8.5 %; NEUTROPHILS # (AUTO) 5.4 10^3/uL (1.5-6.6); NEUTROPHILS % (AUTO) 65.9 %; PLT - PLATELET COUNT 190 10^3/uL (130-450); RED BLOOD COUNT 4.74 10^6/uL (4.20-5.40); RED CELL DISTRIBUTION WIDTH 12.2 % (12.0-15.0); WHITE BLOOD COUNT 8.2 x10^3/uL (4.8-10.8)
[2021-07-19 17:02] LABS: BILIRUBIN,URINE NEGATIVE (NEGATIVE); GLUCOSE, URINE (UA) NEGATIVE (NEGATIVE); KETONES,URINE (UA) NEGATIVE (NEGATIVE); LEUKOCYTE ESTERASE, URINE NEGATIVE (NEGATIVE); NITRITE,URINE NEGATIVE (NEGATIVE); OCCULT BLOOD,URINE TRACE-INTA (NEGATIVE); PROTEIN,URINE NEGATIVE (NEGATIVE); UROBILINOGEN,URINE 0.2 (NORMAL) E.U./dL (NORMAL)
[2021-07-19 17:03] LABS: CLARITY,URINE HAZY (CLEAR); HCG UR QUAL NEGATIVE
[2021-07-19 17:11] LABS: CALCIUM 9.2 mg/dL (8.5-10.3); CREATININE 0.7 mg/dL (0.4-1.0); POTASSIUM 3.8 mmol/L (3.5-5.0)
[2021-07-19 17:12] LABS: AMORPHOUS SEDIMENT,UR Few /LPF; BACTERIA,URINE None Seen /HPF (None Seen); RBC,URINE 0-5 /HPF (0-5); SQUAMOUS EPITHELIAL CELL,UR NONE SEEN (<= Few); WBC,URINE 0-3 /HPF (0-5)
[2021-07-19] MEDS ORDERED: SUMAtriptan 6 MG/0.5 ML VIAL SUBQ STA (18:09)
[2021-07-19 19:34] VITALS: BP 115/76
--- NOTE | 2021-07-19 19:55 | ED Physician Documentation ---
History of Present Illness - Stated complaint Stated Complaint: LIGHTHEADED,SHAKY - Chief complaint Chief Complaint: Neuro - History obtained from History obtained from: Patient - History of Present Illness Timing: Today Pain level max: 0 Pain level now: 0 - Additonal information Additional information: Patient is a 35-year-old female who states that she has a history of migraine headaches. Today she began develop light sensitivity, feeling like she was off balance and experiencing vision changes similar to an aura for one of her migraines but no headache. Worse with movement, better with rest. Worse with light and sound. Gradual onset. Review of Systems Constitutional: denies: Fever, Chills Eyes: reports: Photophobia. denies: Loss of vision, Decreased vision Ears: denies: Ear pain Nose: denies: Rhinorrhea / runny nose, Congestion Throat: denies: Sore throat Cardiac: denies: Chest pain / pressure Respiratory: denies: Dyspnea, Cough GI: denies: Abdominal Pain, Nausea, Vomiting, Diarrhea Skin: denies: Rash Musculoskeletal: denies: Neck pain, Back pain Neurologic: denies: Headache PD PAST MEDICAL HISTORY - Past Medical History Cardiovascular: None Respiratory: Asthma Endocrine/Autoimmune: None GI: None : None HEENT: None Psych: None Musculoskeletal: None Derm: Eczema - Past Surgical History Past Surgical History: Yes HEENT: Myringotomy (tubes) - Present Medications Home Medications: Ambulatory Orders Medication Instructions Recorded Confirmed Albuterol Sulfate [Ventolin Hfa] 90 applic NEB PRN PRN 12/04/13 05/17/21 Albuterol 2.5 mg INH Q4H PRN #30 neb 06/23/19 12/15/20 Fluticasone 44 Mcg [Flovent] 1 puffs INH PRN PRN 12/15/20 05/17/21 Meclizine [Antivert] 12.5 mg PO Q6H #20 tablet 07/07/21 Ondansetron Odt [Zofran] 4 mg TL Q6H PRN #10 tablet 07/07/21 - Allergies Allergies/Adverse Reactions: Allergies Allergy/AdvReac Type Severity Reaction Status Date / Time Latex, Natural Rubber Allergy Severe Hives Verified 07/19/21 15:37 Sulfa (Sulfonamide Allergy Severe Rash Verified 07/19/21 15:37 Antibiotics) - Social History Does the pt smoke?: Yes Smoking Status: Current every day smoker Does the pt drink ETOH?: Yes Does the pt have substance abuse?: No - Immunizations Immunizations are current?: Yes - POLST Patient has POLST: No PD ED PE NORMAL - Vitals Vital signs reviewed: Yes - General General: Alert and oriented X 3, No acute distress - HEENT HEENT: Moist mucous membranes - Neck Neck: Supple, no meningeal sign - Cardiac Cardiac: RRR - Respiratory Respiratory: No respiratory distress, Clear bilaterally - Abdomen Abdomen: Soft, Non tender, Non distended - Derm Derm: Warm and dry, No rash - Extremities Extremities: No edema, No calf tenderness / cord - Neuro Neuro: Alert and oriented X 3, food and drug research scientist 2-12 intact, No motor deficit, No sensory deficit, Normal speech, Other (Normal cerebellar testing. Nystagmus. Negative Hallpike) Results - Vitals Vitals: Vital Signs - 24 hr 07/19/21 07/19/21 07/19/21 15:38 18:00 19:30 Temperature 36.5 C Heart Rate 78 64 51 L Respiratory 16 16 14 Rate Blood Pressure 132/92 H 106/73 115/76 O2 Saturation 100 100 97 Oxygen O2 Source Room air - Labs Labs: Laboratory Tests 07/19/21 07/19/21 07/19/21 16:45 16:45 16:45 WBC 8.2 RBC 4.74 Hgb 14.1 Hct 42.4 MCV 89.5 MCH 29.7 MCHC 33.3 RDW 12.2 Plt Count 190 MPV 11.3 H Neut # (Auto) 5.4 Lymph # (Auto) 1.8 Fisher # (Auto) 0.7 Eos # (Auto) 0.2 Baso # (Auto) 0.1 Absolute Nucleated RBC 0.00 Nucleated RBC % 0.0 Sodium 138 Potassium 3.8 Chloride 101 Carbon Dioxide 28 Anion Gap 9.0 BUN 11 Creatinine 0.7 Estimated GFR (MDRD) 95 Glucose 95 Calcium 9.2 Urine Color YELLOW Urine Clarity HAZY Urine pH 7.0 Ur Specific Yermo 1.020 Urine Protein NEGATIVE Urine Glucose (UA) NEGATIVE Urine Ketones NEGATIVE Urine Occult Blood TRACE-INTA Urine Nitrite NEGATIVE Urine Bilirubin NEGATIVE Urine Urobilinogen 0.2 (NORMAL) Ur Leukocyte Esterase NEGATIVE Urine RBC 0-5 Urine WBC 0-3 Ur Squamous Epith Cells NONE SEEN Amorphous Sediment Few Urine Bacteria None Seen Ur Microscopic Review INDICATED Urine Culture Comments NOT INDICATED Urine HCG, Qual NEGATIVE PD MEDICAL DECISION MAKING - ED course Complexity details: reviewed old records, re-evaluated patient, considered differential, d/w patient ED course: Patient with symptoms consistent with a migraine aura without headache. Treated like a migraine headache. Symptoms resolved. Patient feels much better. We will have her follow-up with her doctor for further care. No indication for imaging. Patient counseled regarding signs and symptoms for which I believe and urgent re-evaluation would be necessary. Patient with good understanding of and agreement to plan and is comfortable going home at this time This document was made in part using voice recognition software. While efforts are made to proofread this document, sound alike and grammatical errors may occur. Departure - Departure Disposition: 01 Home, Self Care Clinical Impression: Migraine aura without headache Condition: Good Instructions: ED Headache Migraine Follow-Up: Provider,Other [Primary Care Provider] - Within 1 week Comments: Follow up with your doctor for further care. Return if you worsen. Discharge Date/Time: 07/19/21 20:07
== END 2021-07-19 20:07 | disposition home or self-care (01) ==
LOC: ED 15:31
DX: G43.109 Migraine with aura, not intractable, without status migrainosus (principal); F17.200 Nicotine dependence, unspecified, uncomplicated
CPT/HCPCS: 36415; 80048; 81001; 81025; 85025; 96365; 96372; 96375; 99283; 99284; J1200; J7040; 81003; 87086

== ENCOUNTER 2021-10-15 11:27 | Outpatient (CLI) | payer BC ==
--- NOTE | 2021-10-15 13:43 | XRAY Report ---
PROCEDURE: Hip w/Pelvis 2-3V RT INDICATIONS: RIGHT HIP PAIN TECHNIQUE: AP pelvis with lateral view(s) of the right hip(s). COMPARISON: None. FINDINGS: Bones: No fractures or dislocations. Pelvic ring appears intact. Mild bilateral hip joint osteophyt ic changes are seen with superior joint space narrowing and subchondral sclerosis. No evidence of helena scular necrosis of femoral head. No suspicious bony lesions. Soft tissues: Multiple surgical clips are noted in bilateral lower pelvis. The visualized bowel gas pattern is normal. No suspicious soft tissue calcifications. IMPRESSION: Mild bilateral hip joint osteoarthritis slightly worse on the right side. No fracture or dislocation. No evidence of avascular necrosis. Reviewed by: Wood Higgins MD on 10/15/2021 1:42 PM PST Approved by: Wood Higgins MD on 10/15/2021 1:42 PM PST Station ID: [id number]
== END 2021-10-15 11:28 | disposition home or self-care (01) ==
LOC: DI.N 11:27
PROVIDERS: ATTEND Physician Assistant Medical
DX: M25.551 Pain in right hip (principal); M16.0 Bilateral primary osteoarthritis of hip

== ENCOUNTER 2022-02-15 11:43 | Emergency (ER) | payer BC ==
[2022-02-15 12:07] LABS: BASOPHILS # (AUTO) 0.1 10^3/uL (0.0-0.1); BASOPHILS % (AUTO) 0.8 %; EOSINOPHILS # (AUTO) 0.2 10^3/uL (0.0-0.7); EOSINOPHILS % (AUTO) 2.4 %; HCT - HEMATOCRIT 43.1 % (37.0-47.0); LYMPHOCYTES # (AUTO) 1.8 10^3/uL (1.5-3.5); LYMPHOCYTES % (AUTO) 28.5 %; MEAN CORPUSCULAR HEMOGLOBIN 30.1 pg (27.0-31.0); MEAN CORPUSCULAR HGB CONC 34.8 g/dL (32.0-36.0); MEAN CORPUSCULAR VOLUME 86.5 fL (81.0-99.0); MEAN PLATELET VOLUME 10.9 fL (7.9-10.8); MONOCYTES # (AUTO) 0.5 10^3/uL (0.0-1.0); MONOCYTES % (AUTO) 8.6 %; NEUTROPHILS # (AUTO) 3.7 10^3/uL (1.5-6.6); NEUTROPHILS % (AUTO) 59.5 %; PLT - PLATELET COUNT 194 10^3/uL (130-450); RED BLOOD COUNT 4.98 10^6/uL (4.20-5.40); RED CELL DISTRIBUTION WIDTH 11.9 % (12.0-15.0); WHITE BLOOD COUNT 6.1 x10^3/uL (4.8-10.8)
[2022-02-15] MEDS ORDERED: NITROGLYCERIN SL 0.4 MG TABLET SL STA (12:08)
--- NOTE | 2022-02-15 12:11 | XRAY Report ---
PROCEDURE: Chest 1 View X-Ray INDICATIONS: Chest pain TECHNIQUE: One view of the chest was acquired. COMPARISON: 03/16/2020 FINDINGS: Surgical changes and devices: None. Lungs and pleura: No pleural effusions or pneumothorax. Lungs are clear. Mediastinum: Mediastinal contours appear normal. Heart size is normal. Bones and chest wall: No suspicious bony lesions. Overlying soft tissues appear unremarkable. IMPRESSION: No acute cardiopulmonary pathology. Reviewed by: Wood Higgins MD on 02/15/2022 12:09 PM PDT Approved by: Wood Higgins MD on 02/15/2022 12:09 PM PDT Station ID: [id number]
--- NOTE | 2022-02-15 12:12 | ED Physician Documentation ---
History of Present Illness - Stated complaint Stated Complaint: CHEST PX - Chief complaint Chief Complaint: Cardiac - Additonal information Additional information: 36-year-old female presents to the emergency department for evaluation of chest pressure that began yesterday afternoon. She describes it as indigestion. Worse when bending over but was worse this morning after getting out of the shower and dressing. She has been taking Tums and Pepcid without relief. She states she is always had a hard time with indigestion but when she felt faint and nauseated she called an advice line and she was told to come to the ER. She denies any history of hypertension or diabetes but is a daily active smoker. She is unsure if family heart disease under the age of 50. She still has regular menstrual cycles. Review of Systems Constitutional: reports: Reviewed and negative Ears: reports: Reviewed and negative Nose: reports: Reviewed and negative Throat: reports: Reviewed and negative Cardiac: reports: Chest pain / pressure, Palpitations. denies: Pedal edema, Calf pain Respiratory: denies: Dyspnea, Cough GI: reports: Nausea : reports: Reviewed and negative Skin: reports: Reviewed and negative Musculoskeletal: reports: Reviewed and negative PD PAST MEDICAL HISTORY - Past Medical History Cardiovascular: None Respiratory: Asthma Endocrine/Autoimmune: None GI: None : None HEENT: None Psych: None Musculoskeletal: None Derm: Eczema - Past Surgical History Past Surgical History: Yes HEENT: Myringotomy (tubes) - Present Medications Home Medications: Ambulatory Orders Medication Instructions Recorded Confirmed Albuterol Sulfate [Ventolin Hfa] 90 applic NEB PRN PRN 12/04/13 05/17/21 Albuterol 2.5 mg INH Q4H PRN #30 neb 06/23/19 12/15/20 Fluticasone 44 Mcg [Flovent] 1 puffs INH PRN PRN 12/15/20 05/17/21 Meclizine [Antivert] 12.5 mg PO Q6H #20 tablet 07/07/21 Ondansetron Odt [Zofran] 4 mg TL Q6H PRN #10 tablet 07/07/21 - Allergies Allergies/Adverse Reactions: Allergies Allergy/AdvReac Type Severity Reaction Status Date / Time Latex, Natural Rubber Allergy Severe Hives Verified 02/15/22 11:46 Sulfa (Sulfonamide Allergy Severe Rash Verified 05/31/22 11:46 Antibiotics) - Social History Does the pt smoke?: Yes Smoking Status: Current every day smoker Does the pt drink ETOH?: Yes Does the pt have substance abuse?: No - Immunizations Immunizations are current?: Yes - POLST Patient has POLST: No PD ED PE NORMAL - General General: Alert and oriented X 3, No acute distress - HEENT HEENT: Atraumatic - Neck Neck: Supple, no meningeal sign, No adenopathy - Cardiac Cardiac: RRR, No murmur - Abdomen Abdomen: Normal bowel sounds, Soft - Back Back: No CVA TTP - Derm Derm: Normal color, Warm and dry - Extremities Extremities: No deformity, Normal ROM s pain - Neuro Neuro: Alert and oriented X 3, lipcoat sprayer 2-12 intact Eye Opening: Spontaneous Motor: Obeys Commands Verbal: Oriented GCS Score: 15 - Psych Psych: Normal mood Results - Vitals Vitals: Vital Signs - 24 hr 02/15/22 02/15/22 02/15/22 11:46 12:19 13:00 Temperature 36.9 C Heart Rate 89 64 69 Respiratory 18 16 14 Rate Blood Pressure 150/98 H 117/75 126/86 H O2 Saturation 100 95 96 Oxygen O2 Source Room air - EKG (time done) 1148 Rate: Rate (enter#) (82) Rhythm: NSR Bethany: Normal Intervals: Normal NM QRS: Normal Ischemia: Normal ST segments Compare to prior EKG: Old EKG unavailable Computer interpretation: Agree with computer - Labs Labs: Laboratory Tests 02/15/22 02/15/22 02/15/22 12:01 12:01 12:01 WBC 6.1 RBC 4.98 Hgb 15.0 Hct 43.1 MCV 86.5 MCH 30.1 MCHC 34.8 RDW 11.9 L Plt Count 194 MPV 10.9 H Neut # (Auto) 3.7 Lymph # (Auto) 1.8 Kemper # (Auto) 0.5 Eos # (Auto) 0.2 Baso # (Auto) 0.1 Absolute Nucleated RBC 0.00 Nucleated RBC % 0.0 Sodium 137 Potassium 4.0 Chloride 104 Carbon Dioxide 23 Anion Gap 10.0 BUN 9 Creatinine 0.8 Estimated GFR (MDRD) 81 L Glucose 109 H Calcium 10.0 Total Bilirubin 0.4 AST 17 ALT 11 Alkaline Phosphatase 39 L Troponin I High Sens < 2.3 L Total Protein 7.5 Albumin 4.7 Globulin 2.8 Albumin/Globulin Ratio 1.7 Lipase 26 - Rads (name of study) cxr Radiology: Final report received (No acute cardiopulmonary pathology) PD MEDICAL DECISION MAKING - ED course Complexity details: reviewed results, re-evaluated patient, d/w patient, d/w leadership development consultant (Paul MARES) ED course: 36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 This has been an intermittent but more frequent concern over the last few weeks. This morning she developed nausea, felt lightheaded after a shower and felt that walking made it worse. She does have a History of tobacco use but no diabetes or hypertension. Here in the emergency department and she was given some nitroglycerin with minimal relief of symptoms though she did subsequently develop a worsening headache and nausea. Symptoms nearly fully resolved following lidocaine and Maalox. Her EKG was nonischemic and screening labs are negative including high- sensitivity troponin. Despite this the story sounds anginal. I discussed this with Rubi Triplett her primary care provider and a referral will be placed for outpatient stress testing. Patient is encouraged to discontinue tobacco use. Her symptoms may also be due to significant acid reflux. She is advised to start omeprazole daily avoid nicotine caffeine and spicy foods. If the stress testing is negative she may benefit from referral to GI. Emergent return precautions otherwise discussed. Departure - Departure Disposition: 01 Home, Self Care Clinical Impression: Left chest pressure Condition: Stable Record reviewed to determine appropriate education?: Yes Instructions: ED Chest Pain Atypical Unkn Cause Comments: Almita you are seen today in the emergency department because over the last few weeks you have had increasing bouts of chest pain and pressure that you described as indigestion. However given your history of tobacco use and the discomfort and nausea this morning we did want to rule out cardiac causes. Your EKG is essentially normal. Your vital signs have also been normal. Your screening labs including a troponin are also negative. However you would benefit from an outpatient stress test and I have spoken with your primary provider. They are making this referral and should be in contact with you in the next few days. It is entirely possible that your symptoms are due to acid reflux. If your stress testing is negative you may then benefit from referral to gastroenterology for an EGD and upper abdominal scoping. In the short-term I recommend you stop tobacco use and minimize caffeine and spicy foods. Taking an dtjz-jei-neegilj medication such as omeprazole daily may also be helpful. If at any point you develop severe chest pain, shortness of air, have any fainting episodes then please return immediately to the ER for second evaluation
[2022-02-15 12:24] LABS: ALBUMIN 4.7 g/dL (3.2-5.5); ALBUMIN/GLOBULIN RATIO 1.7 (1.0-2.2); BILIRUBIN,TOTAL 0.4 mg/dL (0.2-1.0); CREATININE 0.8 mg/dL (0.4-1.0); TOTAL PROTEIN 7.5 g/dL (6.7-8.2)
[2022-02-15] MEDS ORDERED: LIDOCAINE VISCOUS 2% 15 ML UDC MM STA (12:36)
[2022-02-15] MEDS ORDERED: MAG HYDROX/AL HYDROX/SIMETH 30 ML UDC PO STA (12:36)
[2022-02-15 13:03] VITALS: BP 126/86
== END 2022-02-15 13:20 | disposition home or self-care (01) ==
LOC: ED 11:43
DX: R07.89 Other chest pain (principal); F17.200 Nicotine dependence, unspecified, uncomplicated
CPT/HCPCS: 36415; 71045; 80053; 83690; 84484; 85025; 93005; 99284; A9270

== ENCOUNTER 2022-05-26 08:37 | Emergency (ER) | payer BC ==
[2022-05-26] MEDS ORDERED: SODIUM CHLORIDE 0.9% 1,000 ML IV STA (08:42)
[2022-05-26] MEDS ORDERED: KETOROLAC 30 MG/ML VIAL IVP STA (08:42)
[2022-05-26] MEDS ORDERED: ONDANSETRON 4 MG/2 ML VIAL IVP STA (08:42)
--- NOTE | 2022-05-26 08:49 | ED Physician Documentation ---
PD HPI ABD PAIN - Stated complaint Stated Complaint: GALLBLADDER ISSUE - Chief complaint Chief Complaint: Abd Pain - History obtained from History obtained from: Patient - Additional information Additional information: The patient comes to the emergency department with chief complaint of right upper quadrant abdominal pain that started today. She states that it has been getting gradually worse over the course of the morning. She has nausea as well. The patient states that she has a history of fairly significant GERD but has never had a diagnosis of cholelithiasis or pancreatitis. She does note that her mother did have to have her gallbladder removed and she thinks her grandparents also. The patient denies fevers or chills. She has not otherwise been ill. Review of Systems Ten Systems: 10 systems reviewed and negative Constitutional: reports: Reviewed and negative Eyes: reports: Reviewed and negative Ears: reports: Reviewed and negative Nose: reports: Reviewed and negative Throat: reports: Reviewed and negative Cardiac: reports: Reviewed and negative Respiratory: reports: Reviewed and negative GI: reports: Abdominal Pain : reports: Reviewed and negative Skin: reports: Reviewed and negative Musculoskeletal: reports: Reviewed and negative Neurologic: reports: Reviewed and negative Psychiatric: reports: Reviewed and negative Endocrine: reports: Reviewed and negative Immunocompromised: reports: Reviewed and negative PD PAST MEDICAL HISTORY - Past Medical History Cardiovascular: None Respiratory: Asthma Endocrine/Autoimmune: None GI: None : None HEENT: None Psych: None Musculoskeletal: None Derm: Eczema - Past Surgical History Past Surgical History: Yes HEENT: Myringotomy (tubes) - Present Medications Home Medications: Ambulatory Orders Medication Instructions Recorded Confirmed No Known Home Medications 05/26/22 05/26/22 - Allergies Allergies/Adverse Reactions: Allergies Allergy/AdvReac Type Severity Reaction Status Date / Time Latex, Natural Rubber Allergy Severe Hives Verified 05/26/22 08:44 Sulfa (Sulfonamide Allergy Severe Rash Verified 05/26/22 08:44 Antibiotics) - Social History Does the pt smoke?: Yes Smoking Status: Current every day smoker Does the pt drink ETOH?: Yes Does the pt have substance abuse?: No - Immunizations Immunizations are current?: Yes - POLST Patient has POLST: No PD ED PE NORMAL - Vitals Vital signs reviewed: Yes - General General: Alert and oriented X 3, No acute distress, Well developed/nourished, Other (The patient appears mildly uncomfortable.) - HEENT HEENT: Atraumatic, PERRL, EOMI, Moist mucous membranes - Neck Neck: Supple, no meningeal sign - Respiratory Respiratory: No respiratory distress - Abdomen Abdomen: Soft, Non distended, Other (Moderate right upper quadrant tenderness with mild right lower quadrant tenderness, no rebound or guarding.) - Back Back: No CVA TTP - Derm Derm: Normal color, Warm and dry, No rash - Extremities Extremities: No deformity - Neuro Neuro: Alert and oriented X 3 - Psych Psych: Normal mood, Normal affect Results - Vitals Vitals: Vital Signs - 24 hr 05/26/22 08:44 Temperature 36.6 C Heart Rate 71 Respiratory 18 Rate Blood Pressure 133/87 H O2 Saturation 100 Oxygen O2 Source Room air - Labs Labs: Laboratory Tests 05/26/22 05/26/22 05/26/22 09:00 09:00 09:00 WBC 5.8 RBC 4.81 Hgb 14.0 Hct 42.2 MCV 87.7 MCH 29.1 MCHC 33.2 RDW 12.2 Plt Count 178 MPV 11.1 H Neut # (Auto) 3.3 Lymph # (Auto) 1.8 Drew # (Auto) 0.5 Eos # (Auto) 0.1 Baso # (Auto) 0.1 Absolute Nucleated RBC 0.00 Nucleated RBC % 0.0 Sodium 140 Potassium 4.0 Chloride 105 Carbon Dioxide 28 Anion Gap 7.0 BUN 10 Creatinine 0.8 Estimated GFR (MDRD) 81 L Glucose 89 Calcium 9.4 Total Bilirubin 0.7 AST 15 ALT < 10 L Alkaline Phosphatase 39 L Total Protein 7.0 Albumin 4.5 Globulin 2.5 Albumin/Globulin Ratio 1.8 Lipase 24 Serum HCG, Qual NEGATIVE - Rads (name of study) US RUQ Radiology: Final report received, See rad report (Negative) PD MEDICAL DECISION MAKING - ED course Complexity details: reviewed results, re-evaluated patient, considered differential, d/w patient ED course: The patient was worked up with labs and ultrasound of the right upper quadrant. She was given IV fluids and Zofran and Toradol With only mild improvement in symptoms. Her work-up was negative. I discussed with the patient that is important to follow-up with her primary care physician to discuss the possibility of endoscopy, as duodenal or gastric inflammation or ulcer is a possibility. We discussed the usual indications for return. Departure - Departure Disposition: Home, Self Care Clinical Impression: Abdominal pain Qualifiers: Abdominal location: right upper quadrant Qualified Code(s): R10.11 - Right upper quadrant pain Condition: Stable Instructions: ED Abdominal Pain Female Non-Specific Abdominal Pain Comments: Your labs and ultrasound actually look pretty good. Not clear exactly what is causing your abdominal pain, though inflammation of the stomach or the first part of the intestine could be responsible. It is possible that you have even have an ulcer in 1 of these structures. You may take the Zofran and omeprazole if needed and continue your Nexium. Please follow-up with your primary doctor to discuss possibility of having an endoscopy done.
--- OUTSIDE RECORDS SUMMARY | 2022-05-26 08:53 | EXTERNAL MEDICAL SUMMARY RPT | Continuity of Care Document ---
:1985 Author Organization [facility] Address [address] [place] [address] Phone Allergies No information. Encounters No information. Functional Status No information. Immunizations No information. Medications No information. Problems No information. Procedures No information. Results/Labs test date author facility value unit interpret ation Result panel 1 (unknown) (no (unknown) (unknown) (no value) (units (unk nown) date) unknown) (unknown) (no (unknown) (unknown) [address] [place] [address] (units (unknown) date) unknown) (unknown) (no (unknown) (unknown) [place], [place] (units ( unknown) date) [id number] unknown) (unknown) (no (unknown) (unknown) [facility] (units (unknown) date) unknown) (unknown) (no (unknown) (unknown) Magnetic (units (unkno wn) date) Resonance Report unknown) (unknown) (no (unknown) (unknown) Signed (units (unkno wn) date) unknown) (unknown) (no (unknown) (unknown) (no value) (units (unk nown) date) unknown) (unknown) (no (unknown) (unknown) 04/01/22 (units (unkno wn) date) unknown) (unknown) (no (unknown) (unknown) Approved by: (units (u nknown) date) Lexa Rivera, unknownBethany Mark on 04/01/2022 at 11:50 (unknown) (no (unknown) (unknown) Brain: No (units (unk nown) date) intracranial unknown) masses or hemorrhage. Boudreaux/white matter interface is (unknown) (no (unknown) (unknown) Brainstem (units (unkn own) date) appears normal. unknown) Diffusion-weighte d images demonstrate no acute (unknown) (no (unknown) (unknown) COMPARISON: (units (un known) date) None. unknown) (unknown) (no (unknown) (unknown) CSF Spaces: (units (un known) date) Basal cisterns unknown) are patent. No extra-axial fluid collections. (unknown) (no (unknown) (unknown) Dictated by: (units (u nknown) date) mary Salazar M.D. on 04/01/2022 at 11:49 (unknown) (no (unknown) (unknown) FINDINGS: (units (unkn own) date) unknown) (unknown) (no (unknown) (unknown) IMPRESSION: (units (un known) date) unknown) (unknown) (no (unknown) (unknown) INDICATIONS: (units (u nknown) date) Visual unknown) disturbance/Heada maciej/Dizziness (unknown) (no (unknown) (unknown) Image quality: (units (unknown) date) Excellent. unknown) (unknown) (no (unknown) (unknown) No imaging (units (unk nown) date) explanation is unknown) found for this patient's presenting symptoms. (unknown) (no (unknown) (unknown) Noncontrast (units (un known) date) axial T1 spin unknown) echo, axial T2 fast spin echo, sagittal and axial (unknown) (no (unknown) (unknown) Sinuses: (units (unkno wn) date) Sinuses and unknown) mastoids are clear. [id number]-xi-[id number] rightward nasal (unknown) (no (unknown) (unknown) Skull and face: (units (unknown) date) Calvarium has unknown) normal marrow signal. Orbits appear normal. (unknown) (no (unknown) (unknown) TECHNIQUE: (units (unk nown) date) unknown) (unknown) (no (unknown) (unknown) are normal in (units ( unknown) date) size and shape. unknown) (unknown) (no (unknown) (unknown) brain. (units (unkno wn) date) unknown) (unknown) (no (unknown) (unknown) coronal T2 fast (units (unknown) date) spin echo, axial unknown) gradient echo, axial diffusion and ADC through (unknown) (no (unknown) (unknown) deviation is (units (u nknown) date) incidentally unknown) noted. 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 (unknown) (no (unknown) (unknown) insult. No (units (un known) date) chronic ischemic unknown) insults. Normal intravascular flow voids are (unknown) (no (unknown) (unknown) [id number] (units (unkno wn) date) unknown) (unknown) (no (unknown) (unknown) Accession (units (unkn own) date) Number: unknown) [id number] (unknown) (no (unknown) (unknown) Age/Sex: 36 / F (units (unknown) date) Date of unknown) Service: (unknown) (no (unknown) (unknown) : 1985 (units (unknown) date) Acct:[id number] unknown) (unknown) (no (unknown) (unknown) FLAIR, (units (unkno wn) date) unknown) (unknown) (no (unknown) (unknown) Loc: MRI (units (unkno wn) date) unknown) (unknown) (no (unknown) (unknown) Ordering (units (unkno wn) date) Provider: unknown) Mahad Marmolejo MD (unknown) (no (unknown) (unknown) PROCEDURE: MR (units (unknown) date) HEAD/BRAIN WO CON unknown) (unknown) (no (unknown) (unknown) Patient: (units (unkno wn) date) Meghan Davis M unknown) MR#: [id number] (unknown) (no (unknown) (unknown) Procedure: MR (units ( unknown) date) head/brain wo con unknown) (unknown) (no (unknown) (unknown) Ventricles (units (unk nown) date) unknown) (unknown) (no (unknown) (unknown) ischemic (units (unkno wn) date) unknown) (unknown) (no (unknown) (unknown) normal. (units (unkno wn) date) unknown) (unknown) (no (unknown) (unknown) present. (units (unkno wn) date) unknown) (unknown) (no (unknown) (unknown) septal (units (unkno wn) date) unknown) (unknown) (no (unknown) (unknown) the (units (unkno wn) date) unknown) Social History No information. Vital Signs No information.
[2022-05-26 09:08] LABS: BASOPHILS # (AUTO) 0.1 10^3/uL (0.0-0.1); EOSINOPHILS # (AUTO) 0.1 10^3/uL (0.0-0.7); EOSINOPHILS % (AUTO) 2.4 %; HCT - HEMATOCRIT 42.2 % (37.0-47.0); LYMPHOCYTES # (AUTO) 1.8 10^3/uL (1.5-3.5); LYMPHOCYTES % (AUTO) 30.9 %; MEAN CORPUSCULAR HEMOGLOBIN 29.1 pg (27.0-31.0); MEAN CORPUSCULAR HGB CONC 33.2 g/dL (32.0-36.0); MEAN CORPUSCULAR VOLUME 87.7 fL (81.0-99.0); MEAN PLATELET VOLUME 11.1 fL (7.9-10.8); MONOCYTES # (AUTO) 0.5 10^3/uL (0.0-1.0); NEUTROPHILS # (AUTO) 3.3 10^3/uL (1.5-6.6); NEUTROPHILS % (AUTO) 56.5 %; PLT - PLATELET COUNT 178 10^3/uL (130-450); RED BLOOD COUNT 4.81 10^6/uL (4.20-5.40); RED CELL DISTRIBUTION WIDTH 12.2 % (12.0-15.0); WHITE BLOOD COUNT 5.8 x10^3/uL (4.8-10.8)
[2022-05-26 09:30] LABS: ALBUMIN 4.5 g/dL (3.2-5.5); ALBUMIN/GLOBULIN RATIO 1.8 (1.0-2.2); ALKALINE PHOSPHATASE 39 IU/L (42-121); ALT ALANINE AMINOTRANSFERASE < 10 IU/L (10-60); AST ASPARTATE AMINOTRANSFERASE 15 IU/L (10-42); BILIRUBIN,TOTAL 0.7 mg/dL (0.2-1.0); BUN - BLOOD UREA NITROGEN 10 mg/dL (6-20); CALCIUM 9.4 mg/dL (8.5-10.3); CARBON DIOXIDE - CO2 28 mmol/L (21-32); CHLORIDE 105 mmol/L (101-111); CREATININE 0.8 mg/dL (0.4-1.0); GFR - MDRD 81 (>89); GLUCOSE 89 mg/dL (70-100); LIPASE 24 U/L (22-51); SODIUM 140 mmol/L (135-145)
[2022-05-26 09:36] LABS: HCG,QUALITATIVE BLOOD NEGATIVE
[2022-05-26 10:30] VITALS: BP 94/78
--- NOTE | 2022-05-26 10:34 | Ultrasound Report ---
PROCEDURE: Abdomen Limited INDICATIONS: RUQ abd pain TECHNIQUE: Real-time focused scanning was performed of the abdomen, with image documentation. COMPARISON: None FINDINGS: Liver is within normal limits. Normal flow within the portal vein. Gallbladder is within n ormal limits. No biliary ductal dilatation. Pancreas is not well seen. Right kidney is normal. IMPRESSION: No acute process. Reviewed by: Alley Drummond MD on 05/26/2022 10:32 AM PDT Approved by: Alley Drummond MD on 05/26/2022 10:32 AM PDT Station ID: [id number]
== END 2022-05-26 10:30 | disposition home or self-care (01) ==
LOC: ED 08:37
DX: R10.11 Right upper quadrant pain (principal); F17.200 Nicotine dependence, unspecified, uncomplicated
CPT/HCPCS: 36415; 80053; 83690; 84703; 85025; 96374; 99283

== ENCOUNTER 2022-08-06 16:12 | Outpatient (CLI) | payer BC | END 2022-08-06 23:59 | disposition home or self-care (01) | LOC: LAB.N 16:12 | PROVIDERS: ATTEND Family Medicine | DX: R30.0 Dysuria (principal) | CPT/HCPCS: 87086 ==

== ENCOUNTER 2022-08-31 11:34 | Emergency (ER) | payer BC ==
[2022-08-31 12:05] VITALS: BP 132/112
--- NOTE | 2022-08-31 13:04 | XRAY Report ---
PROCEDURE: Foot 3 View RT INDICATIONS: Trauma TECHNIQUE: 3 views of the foot were acquired. COMPARISON: None FINDINGS: Bones: No acute fractures or dislocations. No suspicious bony lesions. Soft tissues: No suspicious soft tissue calcification. IMPRESSION: No acute osseous abnormality. If there is clinical concern or persistent symptoms, additional imaging such as repeat radiographs or advanced imaging (e.g. CT, MRI) may be helpful for further evaluation. Reviewed by: Ramiro Sharma MD on 08/31/2022 12:53 PM [facility] Approved by: Ramiro Sharma MD on 08/31/2022 12:53 PM PST Station ID: [id number]
[2022-08-31] MEDS ORDERED: KETOROLAC 30 MG/ML VIAL IM STA (13:17)
--- NOTE | 2022-08-31 13:26 | ED Physician Documentation ---
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 The sharp edge of a cabinet fell on her toe when she pulled it out. Immediate pain since. No open sores or lesions Review of Systems Constitutional: denies: Fever, Chills Throat: reports: Reviewed and negative Cardiac: reports: Reviewed and negative Respiratory: reports: Reviewed and negative GI: reports: Reviewed and negative Musculoskeletal: reports: Joint pain PD PAST MEDICAL HISTORY - Past Medical History Cardiovascular: None Respiratory: Asthma Endocrine/Autoimmune: None GI: None : None HEENT: None Psych: None Musculoskeletal: None Derm: Eczema - Past Surgical History Past Surgical History: Yes HEENT: Myringotomy (tubes) - Present Medications Home Medications: Ambulatory Orders Medication Instructions Recorded Confirmed No Known Home Medications 05/26/22 05/26/22 - Allergies Allergies/Adverse Reactions: Allergies Allergy/AdvReac Type Severity Reaction Status Date / Time Latex, Natural Rubber Allergy Severe Hives Verified 08/31/22 12:05 Sulfa (Sulfonamide Allergy Severe Rash Verified 08/31/22 12:05 Antibiotics) - Social History Does the pt smoke?: Yes Smoking Status: Current every day smoker Does the pt drink ETOH?: Yes Does the pt have substance abuse?: No - Immunizations Immunizations are current?: Yes - POLST Patient has POLST: No PD ED PE EXPANDED - Extremities Extremities: Right toe(s) (Pain with palpation of the DIP joint of the right great toe. Mild erythema but no swelling or ecchymosis.) Results - Vitals Vitals: Vital Signs - 24 hr 08/31/22 12:03 Temperature 36.5 C Heart Rate 66 Respiratory 20 Rate Blood Pressure 132/112 H O2 Saturation 99 Oxygen O2 Source Room air PD MEDICAL DECISION MAKING - ED course Complexity details: reviewed results, re-evaluated patient, d/w patient ED course: 29-year-old female presents emergency department for evaluation of right great toe pain after cabinet door fell and struck her on the toe through tennis shoes. X-ray does not reveal an obvious fracture. I suspect she has a contusion or even a bone bruise. We discussed the typical RICE precautions. This was a work industries claim. [employer] paperwork was completed. Patient is cleared to return to full work on 04 September. She will receive 1 day off work to allow this to heal. Emergent return precautions were otherwise discussed. No modified duty should be necessary. Departure - Departure Disposition: 01 Home, Self Care Clinical Impression: Work related injury Contusion of toe of right foot Qualifiers: Encounter type: sequela Toe: great toe Damage to nail status: without damage Qualified Code(s): S90.111S - Contusion of right great toe without damage to nail, sequela Condition: Stable Record reviewed to determine appropriate education?: Yes Instructions: ED Contusion Lower Extr Ch Comments: Almita the x-ray of the toe does not show an broken bone. I suspect you have a bad contusion or bruising in this area that will get better over the next week or so. I recommend you take Tylenol 500 mg with food 2-3 times a day or alternate with ibuprofen 600 mg also with food. Icing the toe over the next few days may be helpful. You are cleared to return to work on 04 September. No modified duty should be necessary.
== END 2022-08-31 13:35 | disposition home or self-care (01) ==
LOC: ED 11:34
DX: S90.111A Contusion of right great toe without damage to nail, initial encounter (principal); X58.XXXA Exposure to other specified factors, initial encounter; Y99.0 Civilian activity done for income or pay; F17.200 Nicotine dependence, unspecified, uncomplicated
CPT/HCPCS: 99281; 99283

== ENCOUNTER 2023-08-18 20:50 | Outpatient (CLI) | payer BC ==
--- NOTE | 2023-08-19 09:09 | Ultrasound Report ---
PROCEDURE: Duplex Ext Veins Right INDICATIONS: PAIN IN RIGHT LOWER LEG TECHNIQUE: Real-time imaging, as well as color and pulse Doppler interrogation, were performed of the lower extr emity deep veins from the inguinal ligament to the popliteal fossa. Attempted visualization of the ca lf veins was performed. COMPARISON: None. FINDINGS: The deep veins are normally compressible, and free of intraluminal thrombus. Color and pu lse Doppler demonstrate normal phasic intraluminal flow. There is normal augmentation response to di stal compression maneuver. IMPRESSION: No deep venous thrombosis of the visualized lower extremity. Reviewed by: Sarabjit Lynn on 08/19/2023 8:08 AM [place] Approved by: Sarabjit Lynn on 08/19/2023 8:08 AM [facility] Station ID: [id number]
== END 2023-08-18 20:51 | disposition home or self-care (01) ==
LOC: DI 20:50
PROVIDERS: ATTEND Nurse Practitioner Family
DX: Z91.89 Other specified personal risk factors, not elsewhere classified (principal); M79.661 Pain in right lower leg